=== PATIENT | female | born 2005 ===

== ENCOUNTER 2024-09-28 17:39 | Emergency (ER) | payer SELFPAY ==
[2024-09-28 17:41] VITALS: BP 93/58; PULSE 86; RESP 16; TEMP 36.8; O2SAT 100; BMI 27.9
== END 2024-09-28 20:24 | disposition left against medical advice (07) ==
LOC: ED 20:23
DX: Z53.21 Procedure and treatment not carried out due to patient leaving prior to being seen by health care provider (principal)